=== PATIENT | female | born 1945 | race Caucasian/White ===

== ENCOUNTER 2022-01-11 07:52 | Day surgery (SDC) | payer OTHER ==
[2022-01-03 15:07] VITALS: BMI 20.1
[2022-01-11] MEDS ORDERED: LIDOCAINE HCL/PF 2% SDV 5ML VIAL ONE (08:06)
[2022-01-11] MEDS ORDERED: PROPOFOL 20 ML ONE ×4 (08:06)
[2022-01-11 08:18] VITALS: TEMP 97.8
[2022-01-11 09:10] VITALS: PULSE 56
[2022-01-11 10:34] VITALS: BP 115/65
== END 2022-01-11 10:10 | disposition home or self-care (01) ==
LOC: FASU-ENDO 07:52
PROVIDERS: ATTEND Internal Medicine Gastroenterology
PROC: 0DJD8ZZ Inspection of Lower Intestinal Tract, Via Natural or Artificial Opening Endoscopic (ICD-10-PCS; principal; 2022-01-11 08:32)
DX: Z12.11 Encounter for screening for malignant neoplasm of colon (principal); K57.30 Diverticulosis of large intestine without perforation or abscess without bleeding